=== PATIENT | male | born 1995 | race Two or more races ===

== ENCOUNTER 2023-01-11 05:19 | Emergency (ER) | payer SELFPAY ==
[2023-01-11] MEDS ORDERED: Morphine 4 MG/ML Syringe IVPUSH ONE (06:35)
[2023-01-11] MEDS ORDERED: Naloxone 0.4 MG/ML SDV IVPUSH PRN (06:35)
[2023-01-11] MEDS ORDERED: Ondansetron 4 MG in Sodium Chloride 0.9% 50 ML IV ONE (06:35)
[2023-01-11] MEDS ORDERED: Lactated Ringers 2,000 ML IV ONE (06:39)
[2023-01-11] MEDS ORDERED: Ondansetron 4 MG/2 ML SDV ONE (06:40)
[2023-01-11 07:01] LABS: BASOPHILS ABSOLUTE AUTO 0.01 K/mm3 (0.01-0.08); BASOPHILS PERCENT AUTO 0.1 % (0.1-1.2); EOSINOPHILS PERCENT AUTO 0 (0.8-7.0); HEMATOCRIT 45.9 % (40.1-51.0); HEMOGLOBIN 15.6 gm/dl (13.7-17.5); IMMATURE GRAN ABSOLUTE AUTO 0.02 K/mm3 (0.00-0.10); IMMATURE GRAN PERCENT AUTO 0.2 % (<=1.0); LYMPHOCYTES ABSOLUTE AUTO 0.61 K/mm3 (1.32-3.57); LYMPHOCYTES PERCENT AUTO 5.7 % (21.8-53.1); MEAN CORPUSCULAR HEMOGLOBIN 25.9 pg (25.7-32.2); MEAN CORPUSCULAR VOLUME 76.2 fl (79.0-92.2); MONOCYTES ABSOLUTE AUTO 0.45 K/mm3 (0.30-0.82); MONOCYTES PERCENT AUTO 4.2 % (5.3-12.2); NEUTROPHILS ABSOLUTE AUTO 9.52 K/mm3 (1.78-5.38); NEUTROPHILS PERCENT AUTO 89.8 % (34.0-67.9); PLATELET COUNT,PLT 294 K/mm3 (163-337); RED BLOOD CELL COUNT 6.02 M/mm3 (4.63-6.08); WHITE BLOOD CELL COUNT,WBC 10.61 K/mm3 (4.23-9.07)
[2023-01-11] MEDS ORDERED: Sodium Chloride 0.9% 10 ML Syringe FLUSH PRN ×2 (07:11→07:30)
[2023-01-11] MEDS ORDERED: Iopamidol 755 Mg/ML 100 ML Bottle IVPUSH ONE (07:11)
[2023-01-11 07:15] LABS: A/G RATIO 1.2 (1-2); ALBUMIN 4.7 g/dl (3.4-5.0); ANION GAP 18.1 (5-15); BILIRUBIN TOTAL 0.6 mg/dL (0.2-1.0); CALCIUM 9.9 mg/dL (8.5-10.1); EST CRCL DRUG DOSING (CG) 107.01 mL/min; POTASSIUM,K 4.1 mEq/L (3.5-5.1); PROTEIN TOTAL,TP 8.5 g/dl (6.4-8.2)
[2023-01-11] MEDS ORDERED: Iopamidol 612 MG/ML 100 ML Bottle IVPUSH ONE (07:30)
[2023-01-11] MEDS ORDERED: cefOXitin 2 GM in Premix Bag 1 BAG IV STA (08:08)
[2023-01-11] MEDS ORDERED: cefOXitin 2 GM in Sodium Chloride 0.9% 50 ML IV ONE (08:15)
[2023-01-11] MEDS ORDERED: Loperamide 2 MG Cap PO STA (09:34)
== END 2023-01-11 11:30 | disposition home or self-care (01) ==
LOC: JD.ED 05:19
DX: A08.4 Viral intestinal infection, unspecified (principal)
CPT/HCPCS: 36415; 74177; 80053; 83605; 83690; 85025; 96361; 96365; 96375; 99284; A9270; J0694; J2270; J2405; J3490; J7120; Q9967